=== PATIENT | female | born 1990 | race Caucasian/White ===

== ENCOUNTER 2017-01-24 16:44 | Emergency (ER) | payer OTHER ==
[~2017-01-24] VITALS: Ht 167.6 cm; Wt 81.7 kg
[~2017-01-24 16:44] MED LIST: ACETAMINOPHEN325 M1 PO; CEPHALEXIN500 MG PO; CIPRO500 MG PO; CLINDAMYCIN HC150 MG PO; DEPO-PROVE150 MG/1 M IM; DICYCLOMINE HCL20 MG PO; IBUPROFEN400 MG PO; NAPROXEN500 MG PO; OMEPRAZOLE20 MG PO; ONDANSETRON HCL8 MG PO; ONDANSETRON ODT8 MG PO; TRAMADOL HCL50 MG PO; ULTRAM50 MG PO; ZOFRAN8 MG PO
[2017-01-24] MEDS ORDERED: XULANE PATCH1 EACH TD (17:03)
[2017-01-24] MEDS ORDERED: IBUPROFEN600 MG PO (17:03)
[2017-01-24] MEDS ORDERED: NORCO 5-325 TA1 EACH PO (17:27)
[2017-01-24] MEDS ORDERED: BACLOFEN10 MG PO (17:27)
== END 2017-01-24 17:37 | disposition home or self-care (01) ==
LOC: ED 16:44
DX: S30.0XXA Contusion of lower back and pelvis, initial encounter (principal); M79.662 Pain in left lower leg; F17.200 Nicotine dependence, unspecified, uncomplicated; Z88.0 Allergy status to penicillin; Z88.8 Allergy status to other drugs, medicaments and biological substances; Z79.899 Other long term (current) drug therapy; Z90.89 Acquired absence of other organs; W18.2XXA Fall in (into) shower or empty bathtub, initial encounter
CPT/HCPCS: 99283

== ENCOUNTER 2017-10-10 13:53 | Emergency (ER) | payer OTHER ==
[~2017-10-10] VITALS: Ht 167.6 cm; Wt 72.6 kg
[~2017-10-10 13:53] MED LIST changes: +BACLOFEN10 MG PO; +IBUPROFEN600 MG PO; +NORCO 5-325 TA1 EACH PO; +XULANE PATCH1 EACH TD
[2017-10-10] MEDS ORDERED: CITALOPRAM HBR20 MG PO (14:10)
[2017-10-10] MEDS ORDERED: CYCLOBENZAPRINE5 MG PO (14:35)
[2017-10-10] MEDS ORDERED: IBUPROFEN600 MG PO (14:35)
== END 2017-10-10 16:26 | disposition home or self-care (01) ==
LOC: ED 13:53
DX: S29.012A Strain of muscle and tendon of back wall of thorax, initial encounter (principal); F17.200 Nicotine dependence, unspecified, uncomplicated; Z88.0 Allergy status to penicillin; Z88.6 Allergy status to analgesic agent; Z79.899 Other long term (current) drug therapy; X50.0XXA Overexertion from strenuous movement or load, initial encounter
CPT/HCPCS: 72080; 84703; 99283

== ENCOUNTER 2020-10-24 15:31 | Emergency (ER) | payer OTHER ==
[~2020-10-24] VITALS: Ht 167.6 cm; Wt 72.6 kg
[~2020-10-24 15:31] MED LIST changes: +CITALOPRAM HBR20 MG PO; +CYCLOBENZAPRINE5 MG PO
[2020-10-24] MEDS ORDERED: AMITRIPTYLINE100 MG PO (15:42)
[2020-10-24] MEDS ORDERED: HYDROCODON-ACE1 EA11 PO (17:58)
== END 2020-10-24 18:17 | disposition home or self-care (01) ==
LOC: ED 15:31
DX: S29.012A Strain of muscle and tendon of back wall of thorax, initial encounter (principal); V59.50XA Passenger in pick-up truck or van injured in collision with unspecified motor vehicles in traffic accident, initial encounter; F17.200 Nicotine dependence, unspecified, uncomplicated; Z88.0 Allergy status to penicillin; Z88.8 Allergy status to other drugs, medicaments and biological substances; Z79.899 Other long term (current) drug therapy
CPT/HCPCS: 72070; 96374; 96375; 99284-25; A9270; J1885; J2405

== ENCOUNTER 2022-01-08 05:07 | Emergency (ER) | payer OTHER ==
[~2022-01-08] VITALS: Ht 167.6 cm; Wt 73.8 kg
[~2022-01-08 05:07] MED LIST changes: +AMITRIPTYLINE100 MG PO; +HYDROCODON-ACE1 EA11 PO
== END 2022-01-08 06:55 | disposition home or self-care (01) ==
LOC: ED 05:07
DX: R51.9 Headache, unspecified (principal); M54.50 Low back pain, unspecified; F17.200 Nicotine dependence, unspecified, uncomplicated; Z88.0 Allergy status to penicillin; Z88.8 Allergy status to other drugs, medicaments and biological substances; Z20.822 Contact with and (suspected) exposure to COVID-19
CPT/HCPCS: 36415; 80053; 81001; 83735; 84703; 85025; 87502; 96361; 96374; 96375; 99284-25; A9270; C9803; J1200; J1885; J2765; J7030; U0003

== ENCOUNTER 2022-09-03 02:00 | Emergency (ER) | payer OTHER ==
[~2022-09-03] VITALS: Ht 167.6 cm; Wt 68.0 kg
[2022-09-03] MEDS ORDERED: FLUOXETINE HCL10 MG PO (02:27)
[2022-09-03] MEDS ORDERED: FALMINA1 EACH PO (02:27)
[2022-09-03 10:15] VITALS: BP 131/55
--- NOTE | 2022-09-03 13:02 | EKG ---
[facility] [address] [place] [address] Signed Normal sinus rhythm with sinus arrhythmia Normal ECG No previous ECGs available Confirmed by BO RAMAN MD ([id number]) on 09/03/2022 1:02:44 PM Electronically Signed By: BO RAMAN MD 09/03/22 1302 PATIENT NAME: RODRIGO PEÑALOZA Electrocardiogram DATE OF : 89 PHYSICIAN: BO RAMAN MD REPORT #: [id number] REPORT IS CONFIDENTIAL AND NOT TO BE RELEASED WITHOUT AUTHORIZATION
== END 2022-09-03 10:15 | disposition home or self-care (01) ==
LOC: ED 02:00
DX: T43.012A Poisoning by tricyclic antidepressants, intentional self-harm, initial encounter (principal); F32.1 Major depressive disorder, single episode, moderate; F17.200 Nicotine dependence, unspecified, uncomplicated; Z88.0 Allergy status to penicillin; Z88.6 Allergy status to analgesic agent; Z79.899 Other long term (current) drug therapy
CPT/HCPCS: 36415; 80053; 81001; 84443; 84703; 85025; 90471; 90715; 93005; 93010; 99284-25; G0480

== ENCOUNTER 2022-12-24 04:32 | Emergency (ER) | payer OTHER ==
[~2022-12-24] VITALS: Ht 167.6 cm; Wt 72.6 kg
--- OUTSIDE RECORDS SUMMARY | ~2022-12-24 | XMS | Continuity of Care Document ---
Demographics + + + | Address | [address] | | | [place] [address] | + + + | Preferred Language | Unknown | + + + | Marital Status | Never | + + + | Worship Affiliation | Unknown | + + + | Race | White | + + + | Ethnic Group | Not or | + + + Author + + + | Author | [facility] | + + + | Organization | [facility] | + + + | Address | [address] | | | [place] [address] | + + + | Phone | | + + + Care Team Providers + + + + | Care Folder Gluer Operator Name | Role | Phone | + + + + Unavailable | Unavailable | + + + + Allergies No information. Encounters No information. Functional Status No information. Immunizations No information. Medications No information. Problems + + + + | date | description | facility | + + + + | 2022-12-22 18:54 | VIRAL INFECTION, | [facility] | | | UNSPECIFIED | | + + + + | 2022-12-22 18:54 | NICOTINE DEPENDENCE, | [facility] | | | UNSPECIFIED, UNCOMPLICATED | | + + + + | 2022-12-22 18:54 | CALCULUS OF KIDNEY | [facility] | + + + + | 2022-12-22 18:54 | RIGHT UPPER QUADRANT PAIN | [facility] | + + + + | 2022-12-22 18:54 | HORMONE REPLACEMENT | [facility] | | | THERAPY | | + + + + | 2022-12-22 18:54 | OTHER PARTS CATALOGUER (CURRENT) | [facility] | | | DRUG THERAPY | | + + + + | 2022-12-22 18:54 | ALLERGY STATUS TO | [facility] | | | PENICILLIN | | + + + + | 2022-12-22 18:54 | ALLERGY STATUS TO OTH | [facility] | | | DRUG/MEDS/BIOL SUBST STATUS | | | | | | + + + + Procedures No information. Results/Labs No information. Social History +--------+ + + | date | description | facility | +--------+ + + Vital Signs No information."
[~2022-12-24 04:32] MED LIST changes: +FALMINA1 EACH PO; +FLOMAX0.4 MG PO; +FLUOXETINE HCL10 MG PO
--- OUTSIDE RECORDS SUMMARY | 2022-12-24 04:35 | XMS ---
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 Luci VISIT COUNT (12 MO.) [address] [place] [address] TOTAL 4 NOTE: Visits indicate total known visits. ED/UCC VISIT TRACKING (12 MO.) 12/24/2022 04:32 [facility] TYPE: Emergency COMPLAINT: - BACK/LUNG PAIN 12/22/2022 18:54 [facility] TYPE: Emergency COMPLAINT: - SOB DIAGNOSES: - Allergy status to other drugs, medicaments and biological substances - Allergy status to penicillin - Calculus of kidney - Contact with and (suspected) exposure to COVID-19 - Hormone replacement therapy - Nicotine dependence, unspecified, uncomplicated - Other buttermaker (current) drug therapy - Right upper quadrant pain - Viral infection, unspecified 09/03/2022 02:00 [facility] TYPE: Emergency COMPLAINT: - OVERDOSE DIAGNOSES: - Allergy status to analgesic agent - Allergy status to penicillin - Major depressive disorder, single episode, moderate - Nicotine dependence, unspecified, uncomplicated - Other buttermaker (current) drug therapy - Poisoning by tricyclic antidepressants, intentional self-harm, initial encounter 01/08/2022 05:07 [facility] TYPE: Emergency COMPLAINT: - FEVER, VOMITING, BACK PAIN DIAGNOSES: - Allergy status to other drugs, medicaments and biological substances - Allergy status to penicillin - Contact with and (suspected) exposure to COVID-19 - Headache, unspecified - Low back pain, unspecified - Nicotine dependence, unspecified, uncomplicated INPATIENT VISIT TRACKING (12 MO.) No inpatient visits to display in this time frame [email or web address]
[2022-12-24 04:56] LABS: BASOPHILS 2.1 % (0-2); EOSINOPHILS 1.8 % (0-6); HEMATOCRIT 37.1 % (35.0-50.0); HEMOGLOBIN 12.5 g/dL (12.0-18.0); LYMPHOCYTES 11.2 % (24-44); MCH 31.5 (27-36); MCHC 33.8 g/dl (30-36); MCV 93.3 fl (81-99); MONOCYTES 5.8 % (0-12); NEUTROPHILS 79.1 % (39-80); PLATELET COUNT 226 K/uL (140-440); RBC 3.97 M/ul (4.3-5.7); RDW 12.2 (10.5-15.0)
[2022-12-24 05:08] LABS: ALBUMIN/GLOBULIN RATIO 0.83 (1.1-2.4); ANION GAP 11.6 (7-21); BILIRUBIN, TOTAL 0.5 ng/dL (0.2-1.0); BUN/CREATININE RATIO 16.66 (6.0-28.6); CALCIUM 8.8 mg/dL (8.5-10.1); CREATININE, SERUM 0.78 mg/dL (0.55-1.02); POTASSIUM 4.6 mmol/L (3.5-5.1); PROTEIN, TOTAL 6.6 g/dL (6.4-8.2)
[2022-12-24 06:04] LABS: AMPHETAMINES, UR NEGATIVE (NEGATIVE); BARBITURATES, UR NEGATIVE (NEGATIVE); BENZODIAZEPINES, UR NEGATIVE (NEGATIVE); BUPRENORPHINE,UR NEGATIVE (NEGATIVE); COCAINE, UR NEGATIVE (NEGATIVE); MARIJUANA (THC), UR POSITIVE (NEGATIVE); MDMA, UR NEGATIVE (NEGATIVE); METHADONE, UR NEGATIVE (NEGATIVE); METHAMPHETAMINE, UR NEGATIVE (NEGATIVE); OPIATES, UR NEGATIVE (NEGATIVE); OXYCODONE, UR NEGATIVE (NEGATIVE); PHENCYCLIDINE, UR NEGATIVE (NEGATIVE); TRICYCLIC ANTIDEPRESSANT, UR POSITIVE (NEGATIVE)
[2022-12-24 06:10] LABS: BILIRUBIN, URINE NEGATIVE (negative); BLOOD/HGB, URINE TRACE-I (Negative); KETONE, URINE NEGATIVE (Negative); LEUK ESTERASE, URINE SMALL (negative); NITRITE, URINE NEGATIVE (negative)
[2022-12-24 06:11] LABS: EPITHELIAL CELLS, URINE SQUAMOUS 2+ /lpf (0-1+)
[2022-12-24 06:15] LABS: BACTERIA, URINE RARE /hpf (negative); CASTS, URINE NONE SEEN \\lpf; CRYSTALS, URINE NONE SEEN (0-1+); REFLEX CULTURE, URINE No (No)
[2022-12-24] MEDS ORDERED: PREDNISONE20 MG PO (07:07)
[2022-12-24] MEDS ORDERED: VENTOLIN HFA18 GM INH (07:07)
[2022-12-24 07:59] VITALS: BP 108/59
== END 2022-12-24 08:02 | disposition home or self-care (01) ==
LOC: ED 04:32
PROVIDERS: Internal Medicine
DX: R07.89 Other chest pain (principal); J06.9 Acute upper respiratory infection, unspecified; B97.89 Other viral agents as the cause of diseases classified elsewhere; F17.200 Nicotine dependence, unspecified, uncomplicated; Z88.0 Allergy status to penicillin; Z88.6 Allergy status to analgesic agent
CPT/HCPCS: 36415; 71260; 80053; 81001; 85025; 85379; 99285-25; A9270; J1100; J1885; J2405; Q9967